=== PATIENT | female | born 1935 | race Caucasian/White ===

== ENCOUNTER 2016-09-12 17:51 | Emergency (ER) | payer MEDICARE, OTHER ==
[~2016-09-12 17:51] MED LIST: ACET325T51 PO; ASPI81TA3 PO; CALC-751 PO; CHOL200025 PO; DOCU250C2 PO; DONE10TA42 PO; FLUO40CA PO; HYDR-4003 PO; KLO5T PO; LORA0.5T PO; OLAN5TAB PO
--- NOTE | 2016-09-12 19:16 | ED.REPORT ---
HPI-Dyspnea / Wheezing Date of Service Sep 12, 2016 ED Provider: Kj Hines MD 81-year-old female past medical history of Alzheimer's disease currently residing at where the heart is. Patient has a past history aspiration secondary to food bolus blockage of her trachea/esophagus requiring ED visit. Patient is currently on mechanical soft diet. Tonight during her dinner meal patient reportedly took a bite of her neighbors chicken sandwich which got stuck in her throat. Patient reportedly received the Heimlich maneuver without effect, patient's lips became cyanotic and medics were dispatched. Food bolus was able to be extracted either by where the heart is staff or medics unclear as to which. Patient then transported to ED. At time of interview patient asymptomatic with good saturation. Nursing Notes Stated Complaint: CHOKING Chief Complaint: General Complaint Nursing Notes Reviewed: Yes Allergies: Coded Allergies: No Known Allergies (Verified Allergy, Unknown, 03/17/16) Scheduled Acetaminophen (Acetaminophen) 325 Mg Tablet 650 MG PO TID Aspirin Chew (Aspirin Chew) 81 Mg Tab.chew 81 MG PO DAILY Calcium Carbonate/Vitamin D3 (Calcium 600 + Vit D 400 Caplet) 1 Each Tablet 1 EACH PO DAILY Cholecalciferol (Vitamin D3) (Vitamin D3) 2,000 Unit Tablet 2,000 UNIT PO DAILY Clonazepam (Clonazepam) 0.5 Mg Tab 0.5 MG PO BID Docusate Sodium (Docusate Sodium) 250 Mg Capsule 250 MG PO AM Donepezil (Donepezil) 10 Mg Tablet 10 MG PO DAILY Fluoxetine (Fluoxetine) 40 Mg Capsule 40 MG PO AM Olanzapine (Olanzapine) 5 Mg Tablet 5 MG PO DAILY Scheduled PRN Hydrocodone-Acetaminophen 5-325 mg (Hydrocodone-Acetaminophen 5-325 mg) 1 Each Tablet 1-2 EACH PO Q4 PRN PRN For Pain Lorazepam (Lorazepam) 0.5 Mg Tablet 0.25 MG PO Q4 PRN PRN For Anxiety or Agitation General Time Seen by MD: 18:52 Transferred From: retirement Chief Complaint Shortness of breath Hx Obtained From: Son Arrived By: Ambulance Sudden in Onset?: Yes Onset Occurred: Just prior to arrival Past Medical History Past Medical History Notes: Pt's PCP is Dr. Martin in [place]. Past Medical History Per old records: Alzheimer's dementia depression chronic pain with narcotic dependence anxiety using benzodiazepine osteoporosis osteopenia. Past Surgical History remote eye surgery as a child, family does not know more detail Smoking History Former Smoker Social History Other Social History: Lives in alf Ambulatory Status Independent Review of Systems Patient has diagnosed Alzheimer's thoroughly review of systems unable to be obtained the patient has twin sons at bedside. Unable to Obtain ROS Mental status (diagnosed Alzheimer's) Respiratory: Denies: Hemoptysis, Non-productive cough, Pleuritic pain, Prod cough, bloody, Shortness of breath, Wheezing Cardiovascular: Denies: Chest pain, Palpitations, Syncope Physical Exam General: No acute distress, well-developed, well-nourished HEENT: Normocephalic, atraumatic. External ears without defect. Pupils equal, round, and reactive to light and accommodation. Anicteric sclerae, moist conjunctivae, and no lid lag. Oropharynx free of erythema and cobble stoning with moist mucosa. Food particles present in oropharynx. Neck: Supple with full range of motion. No jugular venous distension. Cardiovascular: Regular rate and rhythm with no murmurs, rubs, or gallops appreciated Pulmonary: Poor air movement, inspiratory expiratory crackles, wheezes, or rhonchi. Normal respiratory effort with no use of accessory muscles. Abdomen: Soft, nontender, nondistended. Extremities: No clubbing, cyanosis, edema, or lymphadenopathy appreciated. Initial Vital Signs Vital Signs (First) Date Time Temp Pulse Resp B/P Pulse Ox O2 Delivery O2 Flow Rate FiO2 09/12/16 20:36 68 20 128/75 94 Room Air Re-Eval/Medical Decision Med Decision/Clinical Course Patient was asymptomatic at time of interview with no signs of respiratory distress or discomfort. Physical exam did show poor air movement with respiratory crackles though patient has COPD. Chest x-ray showed no evidence of aspiration or obstruction. Her swallow eval unremarkable. Patient discharged to home, no antibiotic prescription given. Patient's sons given strict instructions of when and why to return to ED process was also documented in packet for shelter facility staff Discharge & Departure Impression: Primary Impression: Respiratory distress Disposition: Home Discharge Condition All VS Reviewed: Yes Condition: Stable Referrals: NOPCP (PCP) Attending Statement I saw patient with resident Dr. Willis and agree with plan as above. In brief 81-year-old female with history of dysphasia who is on mechanical soft diet and ate a chicken sandwich tonight which got stuck into her throat. Paramedics arrived and were able to remove it. She did not have any syncopal episode or any symptoms other than the choking which resolved after removal of the foreign body. She was stable throughout time in her care. She passed a bedside swallowing evaluation. Patient advised to continue her mechanical soft diet. Follow-up with primary doctor. Return precautions given. SUSIE WILLIS DO Sep 12, 2016 19:16 Kj Hines MD Sep 13, 2016 00:31
--- NOTE | 2016-09-12 19:24 | DRSVH ---
PROCEDURE: X-RAY CHEST ONE VIEW, PORTABLE ([id number]) INDICATIONS: sob/whezzing TECHNIQUE: One view of the chest was acquired. COMPARISON: [facility], CR, CHEST 1VW (PORTABLE), 03/24/2015, 12:04. [facility], CR, XR CHEST 1VW (PORTABLE), 03/17/2016, 9:35. FINDINGS: Surgical changes and devices: None. Lungs and pleura: Bilateral chronic interstitial infiltrates. No pleural effusions or pneumothorax. Mediastinum: Mediastinal contours appear normal. Heart size is normal. Bones and chest wall: No suspicious bony lesions. Overlying soft tissues appear unremarkable. IMPRESSION: Bilateral chronic interstitial infiltrates suggest chronic interstitial lung disease. Dictated by: Nate Neff M.D. on 09/12/2016 at 19:22 Approved by: Nate Neff M.D. on 09/12/2016 at 19:22
[2016-09-12 20:36] VITALS: BP 128/75; PULSE 68; RESP 20; O2SAT 94
== END 2016-09-12 20:37 | disposition home or self-care (01) ==
LOC: EDBD 17:51 → SED 17:51
DX: R06.00 Dyspnea, unspecified (principal); T17.220A Food in pharynx causing asphyxiation, initial encounter; X58.XXXA Exposure to other specified factors, initial encounter; Y92.129 Unspecified place in nursing home as the place of occurrence of the external cause; Y93.89 Activity, other specified; Y99.8 Other external cause status; G30.9 Alzheimer's disease, unspecified; Z87.891 Personal history of nicotine dependence; Z79.82 Long term (current) use of aspirin